=== PATIENT | male | born 1975 | race Two or more races ===

== ENCOUNTER 2020-04-01 11:38 | Inpatient (IN) | payer MEDICAID ==
[~2020-04-01] VITALS: Ht 165.1 cm; Wt 78.2 kg
[2020-04-01 12:31] LABS: BASOPHILS % 0.3 % (0.0-2.0); EOSINOPHILS % 0.3 % (0.0-5.0); HEMATOCRIT. 34.1 % (42.0-52.0); HEMOGLOBIN. 11.3 g/dL (14.0-18.0); MEAN CORPUSCULAR HEMOGLOBIN 30.4 pg (28.0-32.0); MEAN CORPUSCULAR VOLUME 91.7 fL (80.0-94.0); MEAN PLATELET VOLUME 7.3 fl (7.4-10.4); MONOCYTES % 5.1 % (2.0-8.0); NEUTROPHILS % 84.3 % (40.0-76.0); PLATELET 262 x1000/uL (130-400); RED BLOOD CELL COUNT 3.72 mill/uL (4.7-6.1); RED CELL DISTRIBUTION WIDTH 16.2 % (11.6-14.6)
[2020-04-01 12:37] LABS: CHLORIDE 112 mEq/L (98-107)
[2020-04-01 12:54] LABS: PROTHROMBIN TIME 10.5 sec (9.6-11.0)
[2020-04-01 17:39] VITALS: BP 176/88
[2020-04-01 17:40] VITALS: BP 171/83
[2020-04-01 18:38] VITALS: BP 158/86
[2020-04-01] MEDS ORDERED: ASPI-1497 PO (18:57)
[2020-04-01] MEDS ORDERED: PRED10TA PO (18:57)
[2020-04-01] MEDS ORDERED: LEFL10TA15 PO (18:57)
[2020-04-01] MEDS ORDERED: LORA10TA7 PO (18:57)
[2020-04-01] MEDS ORDERED: FOLI0.8T23 PO (18:57)
[2020-04-01] MEDS ORDERED: HYDR200T35 PO (18:57)
[2020-04-01] MEDS ORDERED: CHOL200059 PO (18:57)
[2020-04-01] MEDS ORDERED: MYCO250C PO (18:57)
[2020-04-01] MEDS ORDERED: PANT40TA4 PO (18:57)
[2020-04-01] MEDS ORDERED: CALC250T2 PO (18:57)
[2020-04-01] MEDS ORDERED: ROSU20TA2 PO (18:57)
[2020-04-01] MEDS ORDERED: GABA-529 PO (18:57)
[2020-04-01] MEDS ORDERED: METO-396 PO (18:57)
[2020-04-01] MEDS ORDERED: AMLO5TAB88 PO (18:57)
[2020-04-01] MEDS ORDERED: CLOP75TA33 PO (18:57)
[2020-04-01] MEDS ORDERED: FURO20TA4 PO (18:57)
[2020-04-01 20:00] VITALS: BP 127/79
[2020-04-01 22:00] VITALS: BP 140/76
[2020-04-01] MEDS ORDERED: HYDROCODONE/ACETAMINOPHEN 5/325MG TABLET PO PRN (23:30)
[2020-04-01] MEDS ORDERED: CLONIDINE 0.1MG TABLET PO PRN (23:30)
[2020-04-02] VITALS (12 sets, daily range): BP systolic 124–163; BP diastolic 62–89
[2020-04-02 00:16] LABS: CREATINE KINASE 77 IU/L (39-308); CREATINE KINASE MB FRACTION 2.3 ng/mL (0.5-3.6)
[2020-04-02 06:41] LABS: BASOPHILS % 0.2 % (0.0-2.0); EOSINOPHILS % 1.1 % (0.0-5.0); HEMATOCRIT. 33.1 % (42.0-52.0); HEMOGLOBIN. 10.6 g/dL (14.0-18.0); LYMPHOCYTES % 27.3 % (20.0-50.0); MEAN CORPUSCULAR HEMOGLOBIN 29.3 pg (28.0-32.0); MEAN CORPUSCULAR VOLUME 91.7 fL (80.0-94.0); MEAN PLATELET VOLUME 7.3 fl (7.4-10.4); MONOCYTES % 11.1 % (2.0-8.0); NEUTROPHILS % 60.3 % (40.0-76.0); PLATELET 242 x1000/uL (130-400); RED CELL DISTRIBUTION WIDTH 16.1 % (11.6-14.6)
[2020-04-02 09:55] LABS: CREATINE KINASE 81 IU/L (39-308)
[2020-04-02 09:57] LABS: CREATINE KINASE MB FRACTION 1.7 ng/mL (0.5-3.6)
[2020-04-02] MEDS ORDERED: LORAZEPAM 0.5MG TABLET PO PRN (10:00)
[2020-04-02] MEDS ORDERED: IPRATROPIUM/ALBUTEROL 0.5-3(2.5)MG/3ML NEB HHN PRN (10:00)
[2020-04-02] MEDS ORDERED: ACETAMINOPHEN 325MG TABLET PO PRN (10:00)
[2020-04-02] MEDS ORDERED: LEFLUNOMIDE 20MG TABLET PO SCH (11:00)
[2020-04-02] MEDS: MYCOPHENOLATE MOFETIL 250MG CAPSULE PO SCH (11:01)
[2020-04-02] MEDS: LORATADINE 10MG TABLET PO SCH (11:02)
[2020-04-02] MEDS: ASPIRIN 81MG EC TABLET PO SCH (11:02)
[2020-04-02] MEDS: CLOPIDOGREL 75MG TABLET PO SCH (11:03)
[2020-04-02] MEDS: HYDROXYCHLOROQUINE SULFATE 200MG TABLET PO SCH (11:03)
[2020-04-02] MEDS: FOLIC ACID/VITAMIN B COMP W-C TABLET PO SCH (11:03)
[2020-04-02] MEDS: PREDNISONE 10MG TABLET PO SCH (11:04)
[2020-04-02] MEDS: HYDRALAZINE HCL 50MG TABLET PO SCH ×2 (11:05→11:07)
[2020-04-02] MEDS: SODIUM CHLORIDE 0.9% 1,000 ML IV SCH (11:12)
[2020-04-02] MEDS: FAMOTIDINE 20MG TABLET PO SCH (11:12)
[2020-04-02] MEDS: ACETAMINOPHEN 325MG TABLET PO PRN (11:58)
[2020-04-02 17:21] LABS: PHOSPHORUS 4.7 mg/dL (2.5-4.9)
[2020-04-02] MEDS: GABAPENTIN 300MG CAPSULE PO SCH (20:48)
[2020-04-02] MEDS: ATORVASTATIN CALCIUM 20MG TABLET PO SCH (20:48)
[2020-04-02] MEDS ORDERED: METHYLPREDNISOLONE SOD SUCC 125 MG/2 ML VIAL IV NR (23:00)
[2020-04-02 23:32] LABS: ETHANOL BLOOD < 10 mg/dL
[2020-04-02 23:37] LABS: T4 FREE 0.84 ng/dL (0.76-1.46)
[2020-04-02 23:51] LABS: FOLIC ACID (FOLATE) SERUM >20 ng/mL ng/mL (>5.38)
[2020-04-03] VITALS (12 sets, daily range): BP systolic 113–164; BP diastolic 60–105
[2020-04-03 00:02] LABS: VITAMIN B12 SERUM 406 pg/mL (211-911)
[2020-04-03] MEDS: SODIUM CHLORIDE 0.9% 1,000 ML IV SCH (00:07)
[2020-04-03 07:28] LABS: CLARITY URINE CLEAR (CLEAR); COLOR URINE YELLOW (YELLOW); KETONES URINE NEGATIVE (NEGATIVE); LEUKOCYTE ESTERASE URINE NEGATIVE (NEGATIVE); NITRITE URINE NEGATIVE (NEGATIVE); OCCULT BLOOD URINE NEGATIVE (NEGATIVE); PROTEIN URINE 2+ (NEGATIVE); SPECIFIC GRAVITY URINE 1.011 (1.005-1.030); UROBILINOGEN URINE 0.2 E.U./dL (0.2-1.0)
[2020-04-03 07:37] LABS: *AMPHETAMINES SCREEN URINE NEGATIVE (NEGATIVE); *BARBITURATES SCREEN URINE NEGATIVE (NEGATIVE)
[2020-04-03 07:38] LABS: *BENZODIAZEPINES SCREEN URINE NEGATIVE (NEGATIVE); *COCAINE SCREEN URINE NEGATIVE (NEGATIVE); CANNABINOID URINE SCREEN NEGATIVE (NEGATIVE); METHADONE URINE SCREEN NEGATIVE (NEGATIVE); OPIATES URINE SCREEN NEGATIVE (NEGATIVE); PHENCYCLIDINE URINE SCREEN NEGATIVE (NEGATIVE)
[2020-04-03] MEDS: PREDNISONE 10MG TABLET PO SCH (09:14)
[2020-04-03] MEDS: HYDRALAZINE HCL 50MG TABLET PO SCH ×2 (09:14→21:35)
[2020-04-03] MEDS: CLOPIDOGREL 75MG TABLET PO SCH (09:14)
[2020-04-03] MEDS: ASPIRIN 81MG EC TABLET PO SCH (09:14)
[2020-04-03] MEDS: LORATADINE 10MG TABLET PO SCH (09:14)
[2020-04-03] MEDS: HYDROXYCHLOROQUINE SULFATE 200MG TABLET PO SCH (09:14)
[2020-04-03] MEDS: FOLIC ACID/VITAMIN B COMP W-C TABLET PO SCH (09:14)
[2020-04-03] MEDS: DOCUSATE SODIUM 100MG CAPSULE PO PRN (09:15)
[2020-04-03] MEDS: MYCOPHENOLATE MOFETIL 250MG CAPSULE PO SCH (09:15)
[2020-04-03] MEDS: FAMOTIDINE 20MG TABLET PO SCH (09:15)
[2020-04-03] MEDS: LEFLUNOMIDE 10 MG TABLET PO SCH (09:15)
[2020-04-03 14:24] LABS: HEMATOCRIT. 33.5 % (42.0-52.0); HEMOGLOBIN. 10.9 g/dL (14.0-18.0); MEAN CORPUSCULAR HEMOGLOBIN 29.9 pg (28.0-32.0); MEAN CORPUSCULAR VOLUME 91.7 fL (80.0-94.0); MEAN PLATELET VOLUME 7.1 fl (7.4-10.4); PLATELET 248 x1000/uL (130-400); RED BLOOD CELL COUNT 3.65 mill/uL (4.7-6.1); RED CELL DISTRIBUTION WIDTH 15.8 % (11.6-14.6)
[2020-04-03 14:30] LABS: CHLORIDE 109 mEq/L (98-107)
[2020-04-03 14:36] LABS: PROTHROMBIN TIME 10.6 sec (9.6-11.0)
[2020-04-03 15:15] LABS: PLATELET ESTIMATE NORMAL
[2020-04-03] MEDS: GABAPENTIN 300MG CAPSULE PO SCH (21:35)
[2020-04-03] MEDS: ATORVASTATIN CALCIUM 20MG TABLET PO SCH (21:35)
[2020-04-03] MEDS: ACETAMINOPHEN 325MG TABLET PO PRN (22:18)
[2020-04-03] MEDS ORDERED: METHYLPREDNISOLONE 125MG 250 MG in DEXT 5% WATER 100 ML IV NR (22:30)
[2020-04-04] VITALS (12 sets, daily range): BP systolic 134–166; BP diastolic 59–112
[2020-04-04] MEDS: HYDROXYCHLOROQUINE SULFATE 200MG TABLET PO SCH (08:11)
[2020-04-04] MEDS: LORATADINE 10MG TABLET PO SCH (08:11)
[2020-04-04] MEDS: CLOPIDOGREL 75MG TABLET PO SCH (08:11)
[2020-04-04] MEDS: FAMOTIDINE 20MG TABLET PO SCH (08:11)
[2020-04-04] MEDS: PREDNISONE 10MG TABLET PO SCH (08:11)
[2020-04-04] MEDS: ASPIRIN 81MG EC TABLET PO SCH (08:11)
[2020-04-04] MEDS: FOLIC ACID/VITAMIN B COMP W-C TABLET PO SCH (08:11)
[2020-04-04] MEDS: HYDRALAZINE HCL 50MG TABLET PO SCH ×2 (08:12→21:00)
[2020-04-04] MEDS: LEFLUNOMIDE 10 MG TABLET PO SCH (08:12)
[2020-04-04] MEDS: MYCOPHENOLATE MOFETIL 250MG CAPSULE PO SCH (08:12)
[2020-04-04] MEDS: DOCUSATE SODIUM 100MG CAPSULE PO PRN (08:18)
[2020-04-04 08:54] LABS: HEMATOCRIT. 34.4 % (42.0-52.0); HEMOGLOBIN. 11.1 g/dL (14.0-18.0); MEAN CORPUSCULAR HEMOGLOBIN 29.5 pg (28.0-32.0); MEAN CORPUSCULAR VOLUME 91.2 fL (80.0-94.0); MEAN PLATELET VOLUME 7.2 fl (7.4-10.4); PLATELET 275 x1000/uL (130-400); RED BLOOD CELL COUNT 3.77 mill/uL (4.7-6.1); RED CELL DISTRIBUTION WIDTH 15.7 % (11.6-14.6)
[2020-04-04] MEDS ORDERED: LIDOCAINE HCL 1% 20ML VIAL (Pyxis) INJ ONE (12:55)
[2020-04-04 13:06] LABS: ANTI-DNA DOUBLE STRANDED QUANT < 1 IU/mL (0-9); RNP ANTIBODY < 0.2 AI (0.0-0.9); SMITH ANTIBODY < 0.2 AI (0.0-0.9)
[2020-04-04 13:17] LABS: PLATELET ESTIMATE NORMAL
[2020-04-04] MEDS: HYDRALAZINE HCL 100MG TABLET PO SCH (15:44)
[2020-04-04] MEDS: AMLODIPINE 10MG TABLET PO SCH (15:45)
[2020-04-04] MEDS: ACETAMINOPHEN 325MG TABLET PO PRN (22:02)
[2020-04-05] VITALS (12 sets, daily range): BP systolic 113–159; BP diastolic 55–93
[2020-04-05] MEDS: ATORVASTATIN CALCIUM 20MG TABLET PO SCH ×2 (00:47→21:00)
[2020-04-05] MEDS: GABAPENTIN 300MG CAPSULE PO SCH ×2 (00:47→21:00)
[2020-04-05] MEDS: HYDRALAZINE HCL 100MG TABLET PO SCH ×4 (00:47→21:05)
[2020-04-05] MEDS: FAMOTIDINE 20MG TABLET PO SCH (08:40)
[2020-04-05] MEDS: CLOPIDOGREL 75MG TABLET PO SCH (08:40)
[2020-04-05] MEDS: HYDRALAZINE HCL 50MG TABLET PO SCH (08:40)
[2020-04-05] MEDS: FOLIC ACID/VITAMIN B COMP W-C TABLET PO SCH (08:40)
[2020-04-05] MEDS: ASPIRIN 81MG EC TABLET PO SCH (08:40)
[2020-04-05] MEDS: HYDROXYCHLOROQUINE SULFATE 200MG TABLET PO SCH (08:41)
[2020-04-05] MEDS: LORATADINE 10MG TABLET PO SCH (08:41)
[2020-04-05] MEDS: AMLODIPINE 10MG TABLET PO SCH (08:41)
[2020-04-05] MEDS: MYCOPHENOLATE MOFETIL 250MG CAPSULE PO SCH (08:41)
[2020-04-05] MEDS: PREDNISONE 10MG TABLET PO SCH (08:41)
[2020-04-05] MEDS: LEFLUNOMIDE 10 MG TABLET PO SCH (08:42)
[2020-04-05 09:06] LABS: IMMUNOGLOBULIN A <5 mg/dL (90-386); IMMUNOGLOBULIN G 1910 mg/dL (603-1613); IMMUNOGLOBULIN M 34 mg/dL (20-172)
[2020-04-05] MEDS: ACETAMINOPHEN 325MG TABLET PO PRN (12:55)
[2020-04-05] MEDS ORDERED: CALCITRIOL 0.5MCG CAPSULE PO SCH (23:00)
[2020-04-06] VITALS (12 sets, daily range): BP systolic 108–155; BP diastolic 51–88
[2020-04-06] MEDS: HYDRALAZINE HCL 100MG TABLET PO SCH ×3 (05:10→21:10)
[2020-04-06 07:37] LABS: BASOPHILS % 0.3 % (0.0-2.0); EOSINOPHILS % 0.3 % (0.0-5.0); HEMATOCRIT. 31.6 % (42.0-52.0); HEMOGLOBIN. 10.2 g/dL (14.0-18.0); LYMPHOCYTES % 21.6 % (20.0-50.0); MEAN CORPUSCULAR HEMOGLOBIN 29.3 pg (28.0-32.0); MEAN CORPUSCULAR VOLUME 90.9 fL (80.0-94.0); MEAN PLATELET VOLUME 7.7 fl (7.4-10.4); MONOCYTES % 11.6 % (2.0-8.0); NEUTROPHILS % 66.2 % (40.0-76.0); PLATELET 218 x1000/uL (130-400); RED BLOOD CELL COUNT 3.47 mill/uL (4.7-6.1); RED CELL DISTRIBUTION WIDTH 15.7 % (11.6-14.6)
[2020-04-06] MEDS: FOLIC ACID/VITAMIN B COMP W-C TABLET PO SCH (08:23)
[2020-04-06] MEDS: LEFLUNOMIDE 10 MG TABLET PO SCH (08:23)
[2020-04-06] MEDS: MYCOPHENOLATE MOFETIL 250MG CAPSULE PO SCH (08:23)
[2020-04-06] MEDS: DOCUSATE SODIUM 100MG CAPSULE PO PRN (08:24)
[2020-04-06] MEDS: ONDANSETRON 4MG ODT PO PRN (08:24)
[2020-04-06] MEDS: CLOPIDOGREL 75MG TABLET PO SCH (08:24)
[2020-04-06] MEDS: PREDNISONE 10MG TABLET PO SCH (08:24)
[2020-04-06] MEDS: ASPIRIN 81MG EC TABLET PO SCH (08:24)
[2020-04-06] MEDS: FAMOTIDINE 20MG TABLET PO SCH (08:24)
[2020-04-06] MEDS: LORATADINE 10MG TABLET PO SCH (08:25)
[2020-04-06] MEDS: AMLODIPINE 10MG TABLET PO SCH (08:25)
[2020-04-06] MEDS: HYDROXYCHLOROQUINE SULFATE 200MG TABLET PO SCH (08:25)
[2020-04-06 10:06] LABS: ALDOLASE 3.4 U/L (3.3-10.3); GLOMERULAR BASEMENT MEMB AB 11 units (0-20)
[2020-04-06 10:47] LABS: HEPATITIS B SURFACE AB < 3.1 mIU/mL
[2020-04-06 10:55] LABS: HEPATITIS B SURFACE ANTIGEN NEGATIVE
[2020-04-06 11:22] LABS: HEPATITIS A AB IGM NEGATIVE (NEGATIVE)
[2020-04-06] MEDS ORDERED: ONDANSETRON HCL 4MG/2ML INJ IV PRN (11:30)
[2020-04-06] MEDS: CYANOCOBALAMIN 1000MCG/ML VIAL IM SCH (13:00)
[2020-04-06 13:10] LABS: ANTI-MYELOPEROXIDASE AB < 9.0 U/mL (0.0-9.0); ANTI-PROTEINASE 3 ABS < 3.5 U/mL (0.0-3.5)
[2020-04-06] MEDS ORDERED: ZOLPIDEM TARTRATE 5MG TABLET PO PRN (15:00)
[2020-04-06 17:09] LABS: ANA IFA Negative (.)
[2020-04-06] MEDS: ATORVASTATIN CALCIUM 20MG TABLET PO SCH (20:13)
[2020-04-06] MEDS: GABAPENTIN 300MG CAPSULE PO SCH (20:14)
[2020-04-06] MEDS: ACETAMINOPHEN 325MG TABLET PO PRN (20:14)
[2020-04-07] VITALS (13 sets, daily range): BP systolic 114–141; BP diastolic 54–81
[2020-04-07] MEDS: HYDRALAZINE HCL 100MG TABLET PO SCH ×3 (05:30→21:13)
[2020-04-07 06:48] LABS: BASOPHILS % 0.2 % (0.0-2.0); EOSINOPHILS % 0.7 % (0.0-5.0); LYMPHOCYTES % 21.1 % (20.0-50.0); MEAN CORPUSCULAR HEMOGLOBIN 29.5 pg (28.0-32.0); MEAN CORPUSCULAR VOLUME 91.7 fL (80.0-94.0); MEAN PLATELET VOLUME 7.4 fl (7.4-10.4); MONOCYTES % 11.8 % (2.0-8.0); NEUTROPHILS % 66.2 % (40.0-76.0); PLATELET 208 x1000/uL (130-400); RED BLOOD CELL COUNT 3.38 mill/uL (4.7-6.1); RED CELL DISTRIBUTION WIDTH 15.7 % (11.6-14.6)
[2020-04-07] MEDS: HYDROXYCHLOROQUINE SULFATE 200MG TABLET PO SCH (10:30)
[2020-04-07] MEDS: LORATADINE 10MG TABLET PO SCH (10:30)
[2020-04-07] MEDS: MYCOPHENOLATE MOFETIL 250MG CAPSULE PO SCH (10:30)
[2020-04-07] MEDS: FAMOTIDINE 20MG TABLET PO SCH (10:30)
[2020-04-07] MEDS: CLOPIDOGREL 75MG TABLET PO SCH (10:30)
[2020-04-07] MEDS: FOLIC ACID/VITAMIN B COMP W-C TABLET PO SCH (10:30)
[2020-04-07] MEDS: AMLODIPINE 10MG TABLET PO SCH (10:31)
[2020-04-07] MEDS: ASPIRIN 81MG EC TABLET PO SCH (10:31)
[2020-04-07] MEDS: DOCUSATE SODIUM 100MG CAPSULE PO PRN (10:31)
[2020-04-07] MEDS: CYANOCOBALAMIN 1000MCG/ML VIAL IM SCH (10:31)
[2020-04-07] MEDS: PREDNISONE 10MG TABLET PO SCH (10:31)
[2020-04-07] MEDS: LEFLUNOMIDE 10 MG TABLET PO SCH (10:33)
[2020-04-07 13:06] LABS: ATYPICAL P-ANCA <1:20 titer (Neg:<1:20); CYTOPLASMIC C-ANCA <1:20 titer (Neg:<1:20); PERINUCLEAR P-ANCA <1:20 titer (Neg:<1:20)
[2020-04-07 13:06] LABS: VITAMIN D 1-25 DIHYDROXY 28.6 pg/mL (19.9-79.3)
[2020-04-07] MEDS ORDERED: ERGOCALCIFEROL 50000UNITS CAPSULE PO SCH (17:00)
[2020-04-07] MEDS: GABAPENTIN 300MG CAPSULE PO SCH (21:13)
[2020-04-07] MEDS: ATORVASTATIN CALCIUM 20MG TABLET PO SCH (21:13)
[2020-04-08] VITALS (19 sets, daily range): BP systolic 122–156; BP diastolic 62–90
[2020-04-08] MEDS: HYDRALAZINE HCL 100MG TABLET PO SCH (05:59)
[2020-04-08 06:47] LABS: BASOPHILS % 0.1 % (0.0-2.0); EOSINOPHILS % 0.9 % (0.0-5.0); HEMATOCRIT. 28.8 % (42.0-52.0); HEMOGLOBIN. 9.4 g/dL (14.0-18.0); LYMPHOCYTES % 21.6 % (20.0-50.0); MEAN CORPUSCULAR HEMOGLOBIN 29.6 pg (28.0-32.0); MEAN CORPUSCULAR VOLUME 91.2 fL (80.0-94.0); MEAN PLATELET VOLUME 7.5 fl (7.4-10.4); MONOCYTES % 11.7 % (2.0-8.0); NEUTROPHILS % 65.7 % (40.0-76.0); PLATELET 189 x1000/uL (130-400); RED BLOOD CELL COUNT 3.16 mill/uL (4.7-6.1); RED CELL DISTRIBUTION WIDTH 15.5 % (11.6-14.6)
[2020-04-08 07:11] LABS: PARTIAL THROMBOPLASTIN TIME 25.3 sec (23.4-31.0); PROTHROMBIN TIME 10.2 sec (9.6-11.0)
[2020-04-08] MEDS ORDERED: LIDOCAINE HCL 1% 20ML VIAL (Pyxis) INJ ONE (07:31)
[2020-04-08] MEDS ORDERED: SODIUM BICARBONATE 4% (2.4MEQ) 5ML VIAL IV ONE (07:31)
[2020-04-08] MEDS ORDERED: FENTANYL CITRATE/PF 50MCG/ML 2ML VIAL ONE (07:42)
[2020-04-08] MEDS ORDERED: CEFAZOLIN 1000MG PREMIX 50 ML IV ONE ×2 (07:47→08:00)
[2020-04-08] MEDS ORDERED: HEPARIN 1000 UNITS/ML 10ML ONE (07:54)
[2020-04-08] MEDS ORDERED: FENTANYL CITRATE/PF 50MCG/ML 2ML VIAL IV ONE (08:15)
[2020-04-08] MEDS ORDERED: HYDRALAZINE HCL 100MG TABLET PO SCH (10:15)
[2020-04-08] MEDS: HYDROXYCHLOROQUINE SULFATE 200MG TABLET PO SCH (12:42)
[2020-04-08] MEDS: ONDANSETRON 4MG ODT PO PRN (12:42)
[2020-04-08] MEDS: PREDNISONE 10MG TABLET PO SCH (12:43)
[2020-04-08] MEDS: FAMOTIDINE 20MG TABLET PO SCH (12:43)
[2020-04-08] MEDS: FOLIC ACID/VITAMIN B COMP W-C TABLET PO SCH (12:43)
[2020-04-08] MEDS: MYCOPHENOLATE MOFETIL 250MG CAPSULE PO SCH (12:44)
[2020-04-08] MEDS: CYANOCOBALAMIN 1000MCG/ML VIAL IM SCH (12:45)
[2020-04-08] MEDS: LORATADINE 10MG TABLET PO SCH (12:55)
[2020-04-08] MEDS: CLOPIDOGREL 75MG TABLET PO SCH (15:29)
[2020-04-08] MEDS: ASPIRIN 81MG EC TABLET PO SCH (15:29)
[2020-04-08] MEDS: LEFLUNOMIDE 10 MG TABLET PO SCH (15:45)
[2020-04-08] MEDS ORDERED: CARVEDILOL 6.25 MG TABLET PO SCH (21:00)
== END 2020-04-08 18:37 | disposition home or self-care (01) | DRG 469 ==
LOC: EDBD 11:38 → ER 11:38 → 3WST 15:10 → ENRESERV 16:38
PROVIDERS: ADMIT Internal Medicine; ATTEND Internal Medicine
PROC: 4A00X4Z Measurement of Central Nervous Electrical Activity, External Approach (ICD-10-PCS; 2020-04-03)
PROC: 02HV33Z Insertion of Infusion Device into Superior Vena Cava, Percutaneous Approach (ICD-10-PCS; principal; 2020-04-04)
PROC: B548ZZA Ultrasonography of Superior Vena Cava, Guidance (ICD-10-PCS; 2020-04-04)
PROC: 5A1D70Z Performance of Urinary Filtration, Intermittent, Less than 6 Hours Per Day (ICD-10-PCS; 2020-04-05)
PROC: 5A1D70Z Performance of Urinary Filtration, Intermittent, Less than 6 Hours Per Day (ICD-10-PCS; 2020-04-06)
PROC: 02PYX3Z Removal of Infusion Device from Great Vessel, External Approach (ICD-10-PCS; 2020-04-08)
PROC: 02HV33Z Insertion of Infusion Device into Superior Vena Cava, Percutaneous Approach (ICD-10-PCS; 2020-04-08)
PROC: B5181ZA Fluoroscopy of Superior Vena Cava using Low Osmolar Contrast, Guidance (ICD-10-PCS; 2020-04-08)
PROC: 0JH63XZ Insertion of Tunneled Vascular Access Device into Chest Subcutaneous Tissue and Fascia, Percutaneous Approach (ICD-10-PCS; 2020-04-08)
DX: N17.9 Acute kidney failure, unspecified (principal); G92 Toxic encephalopathy; I16.0 Hypertensive urgency; E44.0 Moderate protein-calorie malnutrition; D64.9 Anemia, unspecified; N18.6 End stage renal disease; I13.2 Hypertensive heart and chronic kidney disease with heart failure and with stage 5 chronic kidney disease, or end stage renal disease; I77.6 Arteritis, unspecified; Z96.643 Presence of artificial hip joint, bilateral; I50.22 Chronic systolic (congestive) heart failure; I73.00 Raynaud's syndrome without gangrene; E87.8 Other disorders of electrolyte and fluid balance, not elsewhere classified; D72.829 Elevated white blood cell count, unspecified; E55.9 Vitamin D deficiency, unspecified; E78.00 Pure hypercholesterolemia, unspecified; I25.118 Atherosclerotic heart disease of native coronary artery with other forms of angina pectoris; I42.9 Cardiomyopathy, unspecified; M19.019 Primary osteoarthritis, unspecified shoulder; M87.851 Other osteonecrosis, right femur; M87.852 Other osteonecrosis, left femur; E78.5 Hyperlipidemia, unspecified; R26.9 Unspecified abnormalities of gait and mobility; M81.0 Age-related osteoporosis without current pathological fracture; G90.8 Other disorders of autonomic nervous system; T69.9XXA Effect of reduced temperature, unspecified, initial encounter; Z20.828 Contact with and (suspected) exposure to other viral communicable diseases; I25.2 Old myocardial infarction; Z95.5 Presence of coronary angioplasty implant and graft; Z99.2 Dependence on renal dialysis; X31.XXXA Exposure to excessive natural cold, initial encounter; Z79.82 Long term (current) use of aspirin; Y92.89 Other specified places as the place of occurrence of the external cause; Z68.28 Body mass index [BMI] 28.0-28.9, adult
CPT/HCPCS: 36415; 36558; 36589; 70551; 71045; 76770; 76937; 77001; 80048; 80053; 80305; 80320; 81003; 82085; 82140; 82550; 82553; 82570; 82607; 82652; 82746; 82784; 83036; 83520; 83735; 83970; 84100; 84156; 84439; 84443; 84481; 84484; 84550; 85025; 85651; 86160; 86225; 86235; 86256; 86334; 86431; 86592; 86705; 86706; 86709; 86780; 86803; 87340; 87635; 92523; 93005; 93306; 97162; 97166; 99152; 99153; 99285; C1750; C1752; C1769; C1887; J0690; J1644; J2405; J2930; J3010; J3420; J3490; J7030; J7060; J7512; J7517; Q0162; G0480; G0500